=== PATIENT | male | born 1970 | race African-American/Black ===

== ENCOUNTER 2018-10-07 12:31 | Emergency (ER) | payer OTHER ==
[2018-10-07] MEDS ORDERED: HYDROmorphONE/DILAUDID 2 MG/ML INJ IVP ONE (13:17)
[2018-10-07] MEDS ORDERED: NS 1,000 ML IV ONE ×2 (13:17→14:29)
[2018-10-07] MEDS ORDERED: ONDANSETRON 4 MG/2 ML VIAL IVP ONE (13:17)
--- NOTE | 2018-10-07 13:22 | EDPHY ---
H & P Stated Complaint: N/V/D x3D, red and black "spots" in vomitus. Time Seen by Provider: 10/07/18 13:05 HPI/ROS: CHIEF COMPLAINT: Abdominal pain, vomiting HISTORY OF PRESENT ILLNESS: 48-year-old male presents reporting that for the last 3 days he has had abdominal pain bilateral upper quadrants. Complains of a "boiling" sensation and pressure. You also nauseous. Vomited multiple times yesterday and once today. Patient noted bright red blood with black spots in his vomit today. He has also had a low-grade fever. He watery diarrhea yesterday. No recent travel except from [place] to here about a month ago. Patient has history of GERD diagnosed 4 years ago but takes no medications. No abdominal surgeries. No chest pain, shortness of breath, palpitations, urinary complaints, headache, lightheadedness. REVIEW OF SYSTEMS: A comprehensive 10 system review of systems was reviewed and is otherwise negative aside from elements mentioned in the history of present illness and medical decision making. PAST MEDICAL HISTORY: GERD. SOCIAL HISTORY: Denies alcohol. Positive smoker and smokes marijuana. Homeless. VITAL SIGNS Reviewed by me. Uncomfortable appearing. Lying curled up in the position. GENERAL: Well-developed, well-nourished, no respiratory distress.. HEENT: Atraumatic. Eyes: Emmet sclera. No icterus, no injection. Mouth: moist mucous membranes. No erythema or lesions. Neck: supple with no adenopathy. LUNGS: Clear to auscultation bilaterally, no wheezes, rhonchi or rales. CARDIAC: Regular rate and rhythm, no rubs, murmurs or gallops. ABDOMEN: Soft, epigastric, right, and left upper quadrant tenderness to palpation. No guarding or rebound. No distension. BACK: No CVA tenderness. EXTREMITIES: No trauma. No edema. Range of motion is normal throughout. NEURO: Alert and oriented, grossly nonfocal. SKIN: Warm and dry, no rash. PSYCHIATRIC: Normal mentation, no agitation. - Personal History Current Tetanus/Diphtheria Vaccine: Unsure - Medical/Surgical History Hx Asthma: No Hx Chronic Respiratory Disease: No Hx Diabetes: No Hx Cardiac Disease: No Hx Renal Disease: No Hx Cirrhosis: No Hx Alcoholism: No Hx HIV/AIDS: No Hx Splenectomy or Spleen Trauma: No Other PMH: GERD, spinal Sx - Social History Smoking Status: Heavy smoker Constitutional: Initial Vital Signs Temperature (C) 36.9 C 10/07/18 12:37 Heart Rate 98 10/07/18 12:37 Respiratory Rate 18 10/07/18 12:37 Blood Pressure 97/69 L 10/07/18 12:37 O2 Sat (%) 100 10/07/18 12:37 O2 Delivery Mode Room Air Allergies/Adverse Reactions: aspirin Allergy (Verified 10/07/18 12:37) Home Medications: Medication Instructions Recorded Ondansetron Odt [Zofran Odt 4 mg 4 mg PO Q6 PRN #8 tab 10/07/18 (RX)] oxyCODONE/APAP 5/325 [Percocet 1 tab PO QID PRN #10 tab 10/07/18 5/325 (*)] Medical Decision Making ED Course/Re-evaluation: 48-year-old gentleman presenting with upper abdominal pain, nausea, vomiting, and diarrhea. Low-grade fever also reported. Patient IV placed, received Dilaudid for pain and Zofran for the vomiting. Pain was improved. Patient did have several bouts of dry heaves but no further vomiting[place] [id number] with a significant left shift. CT scan of the abdomen pelvis was ordered. This demonstrates no bowel obstruction , abscess, or evidence of appendicitis. CT scan was consistent with an enteritis. Patient received Protonix IV. He tolerated p.o. Challenge. His sister is here in the emergency department. Patient will be staying with her for the next several days. Discussed the diagnosis, treatment, and return precautions. Differential Diagnosis: Differential diagnosis considered including but not limited to cholecystitis, gastritis, peptic ulcers disease, enteritis, gastroenteritis, hemorrhagic gastritis and pancreatitis. - Data Points Laboratory Results: Laboratory Results 10/07/18 13:16 10/07/18 13:16 10/07/18 10/07/18 10/07/18 14:42 13:16 13:16 WBC 21.83 10^3/uL H 10^3/uL (3.80-9.50) RBC 4.72 10^6/uL 10^6/uL (4.40-6.38) Hgb 13.8 g/dL g/dL (13.7-17.5) Hct 41.3 % % (40.0-51.0) MCV 87.5 fL fL (81.5-99.8) MCH 29.2 pg pg (27.9-34.1) MCHC 33.4 g/dL g/dL (32.4-36.7) RDW 13.1 % % (11.5-15.2) Plt Count 330 10^3/uL 10^3/uL (150-400) MPV 9.3 fL fL (8.7-11.7) Neut % (Auto) 88.7 % H % (39.3-74.2) Lymph % (Auto) 4.8 % L % (15.0-45.0) Travis % (Auto) 5.5 % % (4.5-13.0) Eos % (Auto) 0.4 % L % (0.6-7.6) Baso % (Auto) 0.1 % L % (0.3-1.7) Nucleat RBC Rel Count 0.0 % % (0.0-0.2) Absolute Neuts (auto) 19.35 10^3/uL H 10^3/uL (1.70-6.50) Absolute Lymphs (auto) 1.05 10^3/uL 10^3/uL (1.00-3.00) Absolute Monos (auto) 1.20 10^3/uL H 10^3/uL (0.30-0.80) Absolute Eos (auto) 0.08 10^3/uL 10^3/uL (0.03-0.40) Absolute Basos (auto) 0.03 10^3/uL 10^3/uL (0.02-0.10) Absolute Nucleated RBC 0.00 10^3/uL 10^3/uL (0-0.01) Immature Gran % 0.5 % % (0.0-1.1) Immature Gran # 0.12 10^3/uL H 10^3/uL (0.00-0.10) RBC/WBC/PLT Morphology TNP Platelet Estimate TNP Sodium 134 mEq/L L mEq/L (135-145) Potassium 3.6 mEq/L mEq/L (3.5-5.2) Chloride 97 mEq/L mEq/L (97-110) Carbon Dioxide 25 mEq/l mEq/l (22-31) Anion Gap 12 mEq/L mEq/L (6-14) BUN 18 mg/dL mg/dL (7-23) Creatinine 0.8 mg/dL mg/dL (0.7-1.3) Estimated GFR > 60 Glucose 114 mg/dL H mg/dL (70-100) Calcium 9.4 mg/dL mg/dL (8.5-10.4) Total Bilirubin 1.3 mg/dL mg/dL (0.1-1.4) Conjugated Bilirubin 0.2 mg/dL mg/dL (0.0-0.5) Unconjugated Bilirubin 1.1 mg/dL mg/dL (0.0-1.1) AST 21 IU/L IU/L (17-59) ALT 35 IU/L IU/L (21-72) Alkaline Phosphatase 72 IU/L IU/L (38-126) Total Protein 7.0 g/dL g/dL (6.3-8.2) Albumin 4.2 g/dL g/dL (3.5-5.0) Lipase 68 IU/L IU/L (23-300) Stool Occult Bld Scrn NEGATIVE (NEGATIVE) Medications Given: Discontinued Medications Hydromorphone HCl (Dilaudid) 1 mg IVP EDNOW ONE Stop: 10/07/18 13:18 Last Admin: 10/07/18 13:40 Dose: 1 mg Sodium Chloride (Ns) 1,000 mls @ 0 mls/hr IV EDNOW ONE; Wide Open PRN Reason: Protocol Stop: 10/07/18 13:18 Last Admin: 10/07/18 13:39 Dose: 1,000 mls Sodium Chloride (Ns) 1,000 mls @ 3,000 mls/hr IV ONCE ONE Stop: 10/07/18 14:48 Last Admin: 10/07/18 14:30 Dose: 1,000 mls Ketorolac Tromethamine (Toradol) 30 mg IVP EDNOW ONE Stop: 10/07/18 15:05 Last Admin: 10/07/18 15:12 Dose: 30 mg Ondansetron HCl (Zofran) 4 mg IVP EDNOW ONE Stop: 10/07/18 13:18 Last Admin: 10/07/18 13:40 Dose: 4 mg Pantoprazole Sodium (Protonix) 40 mg IVP EDNOW ONE Stop: 10/07/18 14:41 Last Admin: 10/07/18 14:48 Dose: 40 mg Departure - Departure Disposition: Home, Routine, Self-Care Clinical Impression: Enteritis Abdominal pain Qualifiers: Abdominal location: upper abdomen, unspecified Qualified Code(s): R10.10 - Upper abdominal pain, unspecified Condition: Fair Instructions: Acute Abdominal Pain (ED), Enteritis (ED) Additional Instructions: I suspect that you have a viral infection causing abdominal pain, vomiting, and some diarrhea. It is important that you return a stool sample if at all possible so we can identify the type of bacteria or virus which is causing your infection. In the meantime, you been given a prescription for Zofran. Please use this as needed for ongoing nausea and vomiting. You have also been given a prescription for hydrocodone. You may take this as needed for abdominal pain. For your abdominal pain, nausea, vomiting, I suggested you start with a bland diet and advance as tolerated. This means start with clear liquids such as water, Gatorade, juice, flat non- caffeinated soda. If you tolerate clear liquids, then you may add bland foods such as bananas, rice, or toast. If you do not have any worsening of your symptoms, you may begin to resume a regular diet. You been given referral to the [facility]. Please follow up with them as soon as possible, early next week, for re-evaluation. If you are worsening despite the above treatment, please return to the emergency department or seek care urgently, especially if you develop ongoing nausea, vomiting, Referrals: NONE *PRIMARY CARE P,. [Primary Care Provider] - As per Instructions [facility],. [Clinic] - As per Instructions Prescriptions: Ondansetron Odt [Zofran Odt 4 mg (RX)] 4 mg PO Q6 PRN #8 tab PRN Reason: Nausea oxyCODONE/APAP 5/325 [Percocet 5/325 (*)] 1 tab PO QID PRN #10 tab PRN Reason: Pain
[2018-10-07 13:25] LABS: PLATELET COUNT 330 10^3/uL (150-400)
[2018-10-07] MEDS ORDERED: IOPAMIDOL (ISOVUE-300) 100 ML BTL ONE (13:56)
[2018-10-07] MEDS ORDERED: PANTOPRAZOLE SODIUM 40 MG VIAL IVP ONE (14:40)
[2018-10-07] MEDS ORDERED: KETOROLAC 30 MG/1 ML SDV IVP ONE (15:04)
[2018-10-07 15:14] VITALS: BP 111/72
--- NOTE | 2018-10-07 16:05 | ASMTCMCOM ---
CM Note CM Note Notes: Requested to speak to pt re: outpatient followup coordination w/[facility]. Spoke w/pt at bedside and he states that he moved to the [place] area about a month ago from [place]. Pt states he completed Co[facility] Entry and was referred to [facility] and has been staying there recently. Pt's sister, Paul, accompanied pt to the ED and lives in [place]; he says he will be able to stay with her tonight. Pt provided info on [facility] and their homeless drop-in hours. Pt has a cell #([phone]). CM offered to call PC tomorrow and get him a new pt appt this week and then have PC reach out to him re:appt, etc. Pt agreeable and appreciative of this assistance. Pt states he is employed at [employer] and has not applied for Medicaid yet. Pt aware that someone from [employer] will be reaching out to him and screening him for Emergency Medicaid for this ED visit. Pt also aware that [facility] can also assist w/applying for Medicaid if he is eligible. Pt expresses no other needs at this time. CM to followup w/PC tomorrow. Date Signed: 10/07/2018 04:05 PM Electronically Signed By:Meagan Garza RN
--- NOTE | 2018-10-08 18:30 | ASMTCMCOM ---
CM Note CM Note Notes: Called [facility] and scheduled pt a followup for tomorrow 10/09/18 at 10:40am. CM called pt ([phone]) and left a voicemail to have pt call CM back but did not leave appt info on voicemail due to voicemail message being anonymous. CM had not heard back from the pt by 5pm today so CM called [facility] and spoke w/Jarrod and had the pt's appt tomorrow canceled due to the risk of pt not learning of the appt in time to make it; PC will reach out to the pt to schedule another followup appt. Date Signed: 10/08/2018 05:04 PM Electronically Signed By:Meagan Garza RN
--- NOTE | 2018-10-09 14:09 | ASMTCMCOM ---
CM Note CM Note Notes: This CM received VM from patient regarding "follow up". Chart reviewed and patient called back. Patient is to follow up with the [facility] for follow up and to establish a PCP. This CM explained to patient that while we had scheduled an appointment for him this morning, we cancelled the appointment when we were unable to reach the patient directly and confirm. Patient understands that PC will attempt to contcat him directly for scheduling and I have confirmed the clinic phone number with the patient so he can call and schedule as well. Date Signed: 10/09/2018 02:08 PM Electronically Signed By:Tiffany Daniels RN
== END 2018-10-07 15:41 | disposition home or self-care (01) ==
DX: K52.9 Noninfective gastroenteritis and colitis, unspecified (principal); E86.9 Volume depletion, unspecified; K21.9 Gastro-esophageal reflux disease without esophagitis; F17.200 Nicotine dependence, unspecified, uncomplicated; Z59.0 Homelessness
CPT/HCPCS: 96374; J1170; J1885; J2405; Q9967

== ENCOUNTER 2018-11-06 17:54 | Emergency (ER) | payer OTHER | END 2018-11-06 20:57 | disposition home or self-care (01) ==